=== PATIENT | female | born 1990 | race Hispanic/Latino ===

== ENCOUNTER 2019-11-15 20:21 | Emergency (ER) | payer SELFPAY ==
[2019-11-15] MEDS ORDERED: ONDANSETRON HCL 4 MG/2 ML VIAL ONE (20:51)
[2019-11-15 21:06] LABS: BASOPHILS % (AUTO) 0.3 % (0.0-5.0); EOSINOPHILS % (AUTO) 1.6 % (0.0-8.0); HEMATOCRIT 35.6 % (36-48); LYMPHOCYTES % (AUTO) 20.2 % (21.0-51.0); MEAN CORPUSCULAR HEMOGLOBIN 20.3 pg (27.0-33.0); MEAN CORPUSCULAR HGB CONC 29.5 g/dL (32.0-36.0); MEAN CORPUSCULAR VOLUME 68.7 fL (79-99); MONOCYTES % (AUTO) 6.4 % (3.0-13.0); NEUTROPHILS % (AUTO) 71.1 % (40.0-77.0); PLATELET COUNT (AUTO) 487 K/uL (130-400); RED BLOOD CELL COUNT(AUTO) 5.18 MIL/uL (4.00-5.50); RED CELL DISTRIBUTION WIDTH 18.2 % (11.0-15.5); WHITE BLOOD COUNT (AUTO) 13.7 K/uL (4.8-10.8)
[2019-11-15 21:10] LABS: APPEARANCE,URINE Clear (CLEAR); BILIRUBIN,URINE Negative (NEGATIVE); COLOR,URINE Yellow (YELLOW); GLUCOSE, URINE (UA) Negative (NEGATIVE); KETONES,URINE Negative (NEGATIVE); LEUKOCYTE ESTERASE ,URINE Small (NEGATIVE); NITRATE,URINE Negative (NEGATIVE); OCCULT BLOOD,URINE Negative (NEGATIVE); PH,URINE 5.5 (5.0-8.0); PROTEIN,URINE Negative (NEGATIVE)
[2019-11-15 21:16] LABS: HCG,QUAL RESULT NEGATIVE (NEGATIVE)
[2019-11-15 21:23] LABS: BACTERIA,URINE Few /HPF (None Seen); POTASSIUM 3.7 mmol/L (3.5-5.1); RBC,URINE None Seen /HPF (0-1)
[2019-11-15 21:29] LABS: ALBUMIN 3.5 g/dL (3.5-5.0); BILIRUBIN,TOTAL 0.2 mg/dL (0.2-1.0); TOTAL PROTEIN, SERUM 8.1 g/dL (6.0-8.3)
[2019-11-15] MEDS ORDERED: LIDOCAINE HCL 2% VISCOUS 15 ML UDCUP ONE (21:50)
[2019-11-15] MEDS ORDERED: MAG HYDROX/AL HYDROX/SIMETH ES 30 ML SUSP UDCUP ONE (21:50)
[2019-11-15] MEDS ORDERED: FAMOTIDINE/PF 20 MG/2 ML VIAL IV ONE (21:51)
== END 2019-11-15 23:47 | disposition home or self-care (01) ==
LOC: EDH 20:21
DX: K29.70 Gastritis, unspecified, without bleeding (principal); R11.2 Nausea with vomiting, unspecified; Z90.49 Acquired absence of other specified parts of digestive tract; Z98.890 Other specified postprocedural states; Z72.0 Tobacco use; Z88.6 Allergy status to analgesic agent
CPT/HCPCS: 36415; 80053; 81001; 81025; 83690; 85025; 96361; 96374; 96375; 99284; J2405; J3490

== ENCOUNTER 2020-10-29 14:52 | Emergency (ER) | payer OTHER ==
[2020-10-29] MEDS ORDERED: DEXAMETHASONE SOD PHOSPHATE 10MG/ML 1ML VIAL ONE (16:16)
[2020-10-29] MEDS ORDERED: KETOROLAC TROMETHAMINE 30MG/ML ONE (16:17)
[2020-10-29] MEDS ORDERED: AZITHROMYCIN 250 MG TABLET PO ONE (16:17)
== END 2020-10-29 16:45 | disposition home or self-care (01) ==
LOC: EDH 14:52
DX: J01.90 Acute sinusitis, unspecified (principal); Z90.49 Acquired absence of other specified parts of digestive tract; Z98.890 Other specified postprocedural states; Z87.891 Personal history of nicotine dependence; Z88.5 Allergy status to narcotic agent
CPT/HCPCS: 96372 ×2; 99284; J1100; J1885

== ENCOUNTER 2021-04-05 22:17 | Emergency (ER) | payer MEDICAID ==
[~2021-04-05] VITALS: Ht 172.7 cm; Wt 149.7 kg
[2021-04-05] MEDS ORDERED: MECL-226 PO (23:26)
[2021-04-05] MEDS ORDERED: FEXO1TAB5 PO (23:26)
[2021-04-05] MEDS ORDERED: AMOX-429 PO (23:26)
[2021-04-05] MEDS ORDERED: AMOX/CLAV 875/125MG TAB PO ONE (23:30)
[2021-04-05] MEDS ORDERED: MECLIZINE HCL 25 MG TABLET PO ONE (23:30)
[2021-04-05 23:45] VITALS: BP 116/65
== END 2021-04-06 00:05 | disposition home or self-care (01) ==
LOC: EDH 22:17
DX: J32.0 Chronic maxillary sinusitis (principal); J32.1 Chronic frontal sinusitis; R03.0 Elevated blood-pressure reading, without diagnosis of hypertension; E66.9 Obesity, unspecified; Z88.5 Allergy status to narcotic agent; Z79.899 Other long term (current) drug therapy; Z68.43 Body mass index [BMI] 50.0-59.9, adult

== ENCOUNTER 2021-04-15 22:41 | Emergency (ER) | payer MEDICAID ==
[~2021-04-15] VITALS: Ht 172.7 cm; Wt 155.1 kg
[~2021-04-15 22:41] MED LIST: AMOX-429 PO; FEXO1TAB5 PO; MECL-226 PO
[2021-04-15] MEDS ORDERED: MECLIZINE HCL 25 MG TABLET PO ONE (23:00)
[2021-04-15] MEDS ORDERED: MECL-226 PO (23:05)
[2021-04-15 23:18] VITALS: BP 145/78
== END 2021-04-15 23:24 | disposition home or self-care (01) ==
LOC: EDH 22:41
DX: R42 Dizziness and giddiness (principal); R03.0 Elevated blood-pressure reading, without diagnosis of hypertension; E66.9 Obesity, unspecified; Z68.43 Body mass index [BMI] 50.0-59.9, adult; Z88.6 Allergy status to analgesic agent; Z79.899 Other long term (current) drug therapy
CPT/HCPCS: 99282

== ENCOUNTER 2022-04-11 23:57 | Emergency (ER) | payer MEDICAID ==
[~2022-04-11] VITALS: Ht 172.7 cm; Wt 150.1 kg
[2022-04-12 01:27] VITALS: BP 122/60
[2022-04-12] MEDS ORDERED: PRED20TA3 PO (01:38)
== END 2022-04-12 01:45 | disposition home or self-care (01) ==
LOC: EDH 23:57
DX: M72.2 Plantar fascial fibromatosis (principal); E66.9 Obesity, unspecified; Z68.43 Body mass index [BMI] 50.0-59.9, adult; Z88.5 Allergy status to narcotic agent
CPT/HCPCS: 73630

== ENCOUNTER 2022-10-21 13:39 | Emergency (ER) | payer BC, MEDICAID ==
[~2022-10-21] VITALS: Ht 172.7 cm; Wt 145.1 kg
[~2022-10-21 13:39] MED LIST changes: +PRED20TA3 PO
[2022-10-21 13:42] VITALS: BP 146/97
[2022-10-21 14:11] LABS: BASOPHILS % (AUTO) 0.4 % (0.0-5.0); EOSINOPHILS % (AUTO) 1.2 % (0.0-8.0); HEMATOCRIT 38.4 % (36-48); LYMPHOCYTES % (AUTO) 5.2 % (21.0-51.0); MEAN CORPUSCULAR HEMOGLOBIN 22.2 pg (27.0-33.0); MEAN CORPUSCULAR HGB CONC 30.5 g/dL (32.0-36.0); MEAN CORPUSCULAR VOLUME 72.7 fL (79-99); MONOCYTES % (AUTO) 9.1 % (3.0-13.0); NEUTROPHILS % (AUTO) 83.4 % (40.0-77.0); PLATELET COUNT (AUTO) 384 K/uL (130-400); RED BLOOD CELL COUNT(AUTO) 5.28 MIL/uL (4.00-5.50); RED CELL DISTRIBUTION WIDTH 18.6 % (11.0-15.5); WHITE BLOOD COUNT (AUTO) 7.5 K/uL (4.8-10.8)
[2022-10-21 14:25] LABS: APPEARANCE,URINE CLEAR (CLEAR); BILIRUBIN,URINE NEGATIVE (NEGATIVE); COLOR,URINE LIGHT-YELLOW (YELLOW); GLUCOSE, URINE (UA) NEGATIVE (NEGATIVE); KETONES,URINE NEGATIVE (NEGATIVE); LEUKOCYTE ESTERASE ,URINE NEGATIVE Leu/uL (NEGATIVE); NITRATE,URINE NEGATIVE (NEGATIVE); OCCULT BLOOD,URINE NEGATIVE (NEGATIVE); PROTEIN,URINE NEGATIVE (NEGATIVE); UROBILINOGEN,URINE 0.2 mg/dL (0.2-1.0)
[2022-10-21] MEDS ORDERED: 0.9%NACL 1000ML 1,000 ML IV ONE (14:30)
[2022-10-21] MEDS ORDERED: KETOROLAC 15MG/ML VIAL (15MG/ML) IV ONE (14:30)
[2022-10-21] MEDS ORDERED: ONDANSETRON 4MG INJ IVP ONE (14:30)
[2022-10-21 14:36] LABS: CREATININE 0.8 mg/dL (0.5-1.5); POTASSIUM 3.7 mmol/L (3.5-5.1)
[2022-10-21 14:42] LABS: ALBUMIN 3.5 g/dL (3.5-5.0); TOTAL PROTEIN, SERUM 7.9 g/dL (6.0-8.3)
[2022-10-21 14:52] LABS: MUCUS,URINE RARE LPF (None Seen); RBC,URINE 0-1 /HPF (0-1); SQUAMOUS EPITHELIAL CELL,UR RARE /HPF (0-2)
[2022-10-21] MEDS ORDERED: DiphenhydrAMINE HCL 50 MG/ML VIAL IV ONE (15:30)
[2022-10-21] MEDS ORDERED: ACETAMINOPHEN 500 MG TABLET PO ONE (15:30)
[2022-10-21] MEDS ORDERED: NIRM1TAB5 PO (15:49)
== END 2022-10-21 16:18 | disposition home or self-care (01) ==
LOC: EDH 13:39
DX: U07.1 COVID-19 (principal); R50.9 Fever, unspecified; Z79.899 Other long term (current) drug therapy; Z98.890 Other specified postprocedural states; Z90.89 Acquired absence of other organs
CPT/HCPCS: 99284; 96374; 71045; 96375; 87635; 96361; 80053; 84703; 85025; 87880; 87804 ×2; 83605; 81001; 36415; C9803; J1200; J7030; J2405; J1885

== ENCOUNTER 2022-10-24 21:29 | Emergency (ER) | payer BC, MEDICAID ==
[~2022-10-24] VITALS: Ht 172.7 cm; Wt 151.5 kg
[~2022-10-24 21:29] MED LIST changes: +NIRM1TAB5 PO
[2022-10-24 22:44] VITALS: BP 135/80
== END 2022-10-24 22:48 | disposition home or self-care (01) ==
LOC: EDH 21:29
DX: S60.041A Contusion of right ring finger without damage to nail, initial encounter (principal); Z79.899 Other long term (current) drug therapy; Z90.89 Acquired absence of other organs; Z98.890 Other specified postprocedural states; Z88.5 Allergy status to narcotic agent; X58.XXXA Exposure to other specified factors, initial encounter; Y93.89 Activity, other specified; Y92.89 Other specified places as the place of occurrence of the external cause; Y99.8 Other external cause status
CPT/HCPCS: 99281

== ENCOUNTER 2024-10-09 17:14 | Emergency (ER) | payer BC, MEDICAID ==
[~2024-10-09] VITALS: Ht 172.7 cm; Wt 149.7 kg
[2024-10-09 17:42] LABS: RAPID GROUP A STREP negative (NEGATIVE)
[2024-10-09 17:49] LABS: COVID19 (SARS ANTIGEN RAPID) PRESUMPTIVE NEGATIVE (NEGATIVE); INFLUENZA TYPE A Negative For Type A (NEGATIVE); INFLUENZA TYPE B Negative For Type B (NEGATIVE)
[2024-10-09 19:22] LABS: BASOPHILS # (AUTO) 0.03 K/uL (0.00-0.20); BASOPHILS % (AUTO) 0.3 % (0.0-5.0); EOSINOPHILS # (AUTO) 0.11 K/uL (0.00-0.70); EOSINOPHILS % (AUTO) 0.9 % (0.0-8.0); HEMATOCRIT 33.7 % (36-48); IMMATURE GRANULOCYTE ABSOLUTE 0.06 K/uL (0-1); LYMPHOCYTES # (AUTO) 2.2 K/uL (1.0-4.8); LYMPHOCYTES % (AUTO) 18.9 % (21.0-51.0); MEAN CORPUSCULAR HGB CONC 29.1 g/dL (32.0-36.0); MEAN CORPUSCULAR VOLUME 72.3 fL (79-99); MONOCYTES # (AUTO) 0.8 K/uL (0.1-1.0); MONOCYTES % (AUTO) 6.7 % (3.0-13.0); NEUTROPHILS # (AUTO) 8.4 K/uL (1.8-7.7); NEUTROPHILS % (AUTO) 72.7 % (40.0-77.0); PLATELET COUNT (AUTO) 399 K/uL (130-400); RED BLOOD CELL COUNT(AUTO) 4.66 MIL/uL (4.00-5.50); RED CELL DISTRIBUTION WIDTH 19.9 % (11.0-15.5); WHITE BLOOD COUNT (AUTO) 11.6 K/uL (4.8-10.8)
[2024-10-09 19:34] LABS: POTASSIUM 3.7 mmol/L (3.5-5.1)
[2024-10-09 19:35] LABS: CREATININE 0.6 mg/dL (0.5-1.0)
[2024-10-09] MEDS: dexaMETHasone SOD PHOSPHATE 4 MG/ML 1ML VIAL IM ONE (19:35)
[2024-10-09] MEDS: cefTRIAXone 1G VIAL IM ONE (19:35)
[2024-10-09] MEDS: ketOROlac 15MG/ML VIAL (15MG/ML) IV ONE (19:59)
[2024-10-09] MEDS ORDERED: AMOX1TAB16 PO (20:07)
[2024-10-09] MEDS ORDERED: KETO10TA2 PO (20:07)
--- NOTE | 2024-10-09 20:08 | ERN ---
General Chief Complaint: Sore Throat Stated Complaint: SORE THROAT, COUGH, GBW Time Seen by MD: 17:32 Time Seen by Midlevel: 17:32 Source: patient History of Present Illness Initial Comments Patient is a 34-year-old female with a past medical history of anemia and sinusitis presenting to the emergency department with multiple complaints. Patient states she has been having an upper respiratory infection for the last couple of days. Symptoms consist of cough, bilateral earache, sore throat, and a headache. She states her headache feels like the previous sinus headaches she was had. She was not seen a primary care doctor for this. Allergies: Coded Allergies: hydrocodone (Unverified Allergy, Unknown, 11/15/19) Home Meds Active Scripts Ketorolac Tromethamine (Ketorolac Tromethamine) 10 Mg Tablet, 1 TAB PO TID for pain for 5 Days, #15 TAB 0 Refills Prov:GILBERTO ALVARADO 10/09/24 Amoxicillin/Potassium Clav (Amox Tr-K Clv 875-125 mg Tab) 875 Mg-125 Mg Tablet, 1 EACH PO BID for 7 Days, #14 TAB 0 Refills Prov:GILBERTO ALVARADO 10/09/24 Nirmatrelvir/Ritonavir (Paxlovid 150-100 mg Pack (Eua)) 1 Each Tablet, 1 EACH PO BID for 5 Days, #1 BOX Prov:MAUREEN LINARES NP 10/21/22 Prednisone (Prednisone) 20 Mg Tablet, 40 MG PO DAILY for 7 Days, #1 TAB 0 Refil ls Prov:JOHN OLIVERA MD 04/12/22 Meclizine HCl (Meclizine HCl) 12.5 Mg Tablet, 25 MG PO TIDP, #60 TAB Prov:LUCINDA RINCON 04/15/21 Meclizine HCl (Meclizine HCl) 12.5 Mg Tablet, 25 MG PO QIDP, #30 TAB Prov:LUCINDA RINCON 04/05/21 Fexofenadine/Pseudoephedrine (Katherine-D 12 Hour Tablet) 1 Each Tab.er.12h, 1 EACH PO BID, #30 TAB Prov:LUCINDA RINCON 04/05/21 Amoxicillin/Potassium Clav (Augmentin 875-125 Tablet) 1 Each Tablet, 1 TAB PO BID for 10 Days, #20 TAB 0 Refills Prov:JASEN RINCONMARIA E RANDOLPH 04/05/21 Past Medical History Past Medical History: Other Medical History Other: SCIATICA Past Surgical History: Tonsillectomy, Social History Social History: Other Female( History) LMP: Sep 11, 2024 ROS Dictation CONSTITUTIONAL: Negative except for HPI HEAD/FACE: Negative except for HPI EENT: Negative except for HPI RESPIRATORY: Negative except for HPI GASTROINTESTINAL/ABDOMINAL: Negative except for HPI GENITOURINARY: Negative except for HPI MUSCULOSKELETAL: Negative except for HPI INTEGUMENTARY: Negative except for HPI NEUROLOGICAL/PSYCH: Negative except for HPI HEMATOLOGIC/LYMPHATIC: Negative except for HPI All Systems Negative, Except as noted above. 13 point review of systems assessed and all negative except for above. Physical Exam Physical Exam Dictation Vital Signs reviewed General Appearance: Alert, oriented x 3, no acute distress, well developed, nourished. Head and Face: non-traumatic. Eyes: PERRL, pink conjunctivas, eyelid no trauma, anterior chamber with arcus senilis. Ears: Pinnas intact and no signs of trauma or erythema ear canals clear and no discharge TM no erythema Nose: No discharge, no bleeding. Oropharynx: Mouth normal, tongue pink, pharynx clear,no erythema, tonsils no exudates, no abscesses noted, mucous membrane moist Neck: Supple, non-tender, no thyromegaly, no masses, no JVD, no bruits Breast:Deferred Chest:No tenderness, no crepitus, no paradoxical movement, no retractions Lungs:Clear, well-ventilated, symmetric, no rales, no wheezing, no rhonchi, no stridor, good breath sounds bilaterally Heart: Regular rate, regular rhythm, no murmur, no gallops Vascular: no peripheral edema, Abdomen: Soft, positive bowel sounds, nondistended, no guarding, nontender, no rebound, no masses no hepatomegaly, no splenomegaly, no Pichardo's sign, no hernias. Rectal: Deferred Genital: Deferred Neurological: Normal speech, motor function intact, sensory function intact Musculoskeletal: Neck nontender, full range of motion, back nontender, full range of motion, Extremities: nontender, full range of motion Skin: Color pink, dry, no turgor, no rash, no lacerations, no abrasions, no contusions. Lymphatic: Deferred Results Laboratory and Microbiology Lab and Micro Result Laboratory Tests Test 10/09/24 17:10 10/09/24 19:03 Influenza Type A Antigen Negative For Type A Influenza Type B Antigen Negative For Type B SARS-CoV-2 Antigen (Rapid) PRESUMPTIVE NEGATIVE Group A Streptococcus Rapid negative (NEGATIVE) White Blood Count 11.6 K/uL (4.8-10.8) H Red Blood Count 4.66 MIL/uL (4.00-5.50) Hemoglobin 9.8 g/dL (12.0-16.0) L Hematocrit 33.7 % (36-48) L Mean Corpuscular Volume 72.3 fL (79-99) L Mean Corpuscular Hemoglobin 21.0 pg (27.0-33.0) L Mean Corpuscular Hemoglobin Concent 29.1 g/dL (32.0-36.0) L Red Cell Distribution Width 19.9 % (11.0-15.5) H Platelet Count 399 K/uL (130-400) Mean Platelet Volume 8.8 fL (7.5-10.5) Immature Granulocyte % (Auto) 0.5 % (0-1) Neutrophils (%) (Auto) 72.7 % (40.0-77.0) Lymphocytes (%) (Auto) 18.9 % (21.0-51.0) L Monocytes (%) (Auto) 6.7 % (3.0-13.0) Eosinophils (%) (Auto) 0.9 % (0.0-8.0) Basophils (%) (Auto) 0.3 % (0.0-5.0) Neutrophils # (Auto) 8.4 K/uL (1.8-7.7) H Lymphocytes # (Auto) 2.2 K/uL (1.0-4.8) Monocytes # (Auto) 0.8 K/uL (0.1-1.0) Eosinophils # (Auto) 0.11 K/uL (0.00-0.70) Basophils # (Auto) 0.03 K/uL (0.00-0.20) Absolute Immature Granulocyte (auto 0.06 K/uL (0-1) Nucleated Red Blood Cells 0.0 % (0.0-0.19) Red Blood Cell Morphology See comments Sodium Level 140 mmol/L (136-145) Potassium Level 3.7 mmol/L (3.5-5.1) Chloride Level 103 mmol/L (101-111) Carbon Dioxide Level 28 mmol/L (21-32) Blood Urea Nitrogen 11 mg/dL (7-18) Creatinine 0.6 mg/dL (0.5-1.0) Glomerular Filtration Rate Calc 121 mL/min (>90) Random Glucose 94 mg/dL (70-105) Total Calcium 8.3 mg/dL (8.5-10.1) L Troponin I High Sensitivity < 4 ng/L (4-50) L Serum Test, Qualitative NEGATIVE (NEGATIVE) Labs Reviewed?: Yes MDM MDM: Differential diagnosis: There are no social concerns with this patient. Prescription drug management Prescriptions will include: Medical management and examination interpretation discussions were had by me with other qualified healthcare professionals as indicated for the patient's care. ED Course Orders Procedure Category Date Status Time Covid19 (Sars Antigen LAB 10/09/24 Complete Rapid) 17:22 Influenza Type A & B, LAB 10/09/24 Complete Rapid 17:22 Rapid (Group A Strep) LAB 10/09/24 Complete 17:22 Cbc With Differential LAB 10/09/24 Complete 18:42 Basic Metabolic Panel LAB 10/09/24 Complete 18:42 Testing, LAB 10/09/24 Complete Serum Hcg 18:42 Chest 1vw RAD 10/09/24 Taken 18:42 Troponin I High LAB 10/09/24 Complete Sensitivity 18:42 12 Lead Ekg Tracing- EKG 10/09/24 Logged Technical 18:42 Ceftriaxone 1g Vial PHA 10/09/24 Complete (Rocephine 1g Inj) 19:00 Dexamethasone 4mg/Ml PHA 10/09/24 Complete 1ml Vial (Dexametha 19:00 Ketorolac PHA 10/09/24 Complete Tromethamine 15mg/Ml 20:00 Current Medications Medications (Trade) Dose Ordered Sig/Demarcus Route PRN Reason Start Time Stop Time Status Last Admin Dose Admin Ceftriaxone Sodium (ROCEphine 1G INJ) 1 gm ONCE ONCE IM 10/09/24 19:00 10/09/24 19:01 DC 10/09/24 19:35 Dexamethasone Sodium Phosphate (dexaMETHasone 4MG/ML 1ML VIAL) 4 mg ONCE ONCE IM 10/09/24 19:00 10/09/24 19:01 DC 10/09/24 19:35 Ketorolac Tromethamine (toRADol) 15 mg ONCE ONCE IV 10/09/24 20:00 10/09/24 20:01 DC 10/09/24 19:59 Vital Signs Date Time Temp Pulse Resp B/P (MAP) Pulse Ox O2 Delivery O2 Flow Rate FiO2 10/09/24 18:53 98.4 86 16 125/82 98 Room Air* 0 21 10/09/24 17:17 98.4 88 20 127/84 98 0 DX & DISP Disposition: Discharge Departure Impression: Primary Impression: Sinusitis Additional Impressions: Anemia, Non-cardiac chest pain Condition: Stable Scripts Ketorolac Tromethamine (Ketorolac Tromethamine) 10 Mg Tablet 1 TAB PO TID for pain for 5 Days, #15 TAB 0 Refills Prov: GILBERTO ALVARADO 10/09/24 Amoxicillin/Potassium Clav (Amox Tr-K Clv 875-125 mg Tab) 875 Mg-125 Mg Tablet 1 EACH PO BID for 7 Days, #14 TAB 0 Refills Prov: GILBERTO ALVARADO 10/09/24 Referrals: JUSTINO MARIE DO (PCP) Time of Disposition: 20:08 I have reviewed the case, and I agree with, Diagnosis and Plan GILBERTO ALVARADO Oct 09, 2024 20:08
--- NOTE | 2024-10-09 20:19 | HMCIMG ---
CHEST 1VW HISTORY: Shortness of breath COMPARISON: 10/21/2022 FINDINGS: A frontal projection of the chest was obtained. Mild bilateral pulmonary infiltrates are seen may be related to mild pulmonary vascular congestion with possible superimposed pneumonitis. The heart is borderline enlarged. Degenerative changes are seen. No evidence of aortic calcification is seen. IMPRESSION: 1. Mild bilateral pulmonary infiltrates are seen may be related to mild pulmonary vascular congestion with possible superimposed pneumonitis.
[2024-10-09 20:51] VITALS: BP 118/65; PULSE 75; RESP 16; TEMP 98.4; O2SAT 98
--- NOTE | 2024-10-10 11:57 | EKG ---
[facility] Test Date: 2024-10-09 Test Time: 18:53:12 Pat Name: BENNY WIGGINS Department: ED Room: Gender: F Ply Bander: [id number] : 1990 Requested By: GILBERTO ALVARADO Order Number: [id number] Reading MD: Bipin Justin Measurements Intervals [place] Rate: 80 P: 26 CO: 151 QRS: 2 QRSD: 102 T: 28 QT: 381 QTc: 441 Interpretive Statements Sinus rhythm No previous ECG available for comparison Electronically Signed On 10-10-2024 17:46:47 CDT by Bipin Justin Please click the below link to view image of tracing.
== END 2024-10-09 21:00 | disposition home or self-care (01) ==
LOC: EDH 17:14
DX: J32.9 Chronic sinusitis, unspecified (principal); D64.9 Anemia, unspecified; R07.89 Other chest pain; Z20.822 Contact with and (suspected) exposure to COVID-19; Z79.52 Long term (current) use of systemic steroids; Z79.899 Other long term (current) drug therapy; Z88.5 Allergy status to narcotic agent; Z90.89 Acquired absence of other organs; Z98.890 Other specified postprocedural states
CPT/HCPCS: 99284; 96374; 71045; 87426; 84484; 80048; 84703; 85025; 87880; 87804 ×2; 36415; 93005; 96372 ×2; J1100; J1885; J0696